=== PATIENT | male | born 1990 | race Two or more races ===

== ENCOUNTER 2025-01-07 09:34 | Emergency (ER) | payer MEDICAID, SELFPAY ==
[2025-01-07 09:37] VITALS: BMI 22.8
[2025-01-07 09:50] VITALS: BP 147/103; PULSE 110; RESP 19; TEMP 36.6; O2SAT 96
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
--- NOTE | 2025-01-07 10:01 | XR_ITS ---
Examination: PA lateral chest 2 views Technique: Upright PA lateral chest 2 views Date and time: January 07, 2025, 1007 hrs., Comparison December 09, 2015 Indications: Shortness of breath chest pain dizziness beginning 2 days ago. Findings: Mild hyperexpansion. Normal heart size. No pneumonia or pulmonary edema. Impression: Mild hyperexpansion. No pneumonia or pulmonary edema.
[2025-01-07 10:19] LABS: Basophils # (Auto) 0.1 Thou/mm3 (0.0-0.2); Basophils % (Auto) 2 % (0-2.5); Eosinophils # (Auto) 0.2 Thou/mm3 (0.0-0.5); Eosinophils % (Auto) 3 % (0-10); Hematocrit 40.5 % (41.0-53.0); Hemoglobin 14.4 g/dL (13.5-16.0); Immature Granulocytes Auto 0.01 Thou/mm3 (0.00-0.00); Lymphocytes # (Auto) 1.1 Thou/mm3 (1.0-4.8); Lymphocytes % (Auto) 24 % (10-50); Mean Corpuscular HGB Conc 35.6 g/dl (31.0-37.0); Mean Corpuscular Hemoglobin 33.7 pg (25.0-35.0); Mean Corpuscular Volume 95 fL (80-100); Monocytes # (Auto) 0.5 Thou/mm3 (0.0-0.8); Monocytes % (Auto) 10 % (0-12); Neutrophils # (Auto) 2.8 Thou/mm3 (1.8-7.7); Neutrophils % (Auto) 60 % (37-80); Nucleated Red Blood Cell # 0.00 Thou/mm3 (0.00-0.00); Nucleated Red Blood Cell % 0 /100 WBC (0); Platelet Count 270 Thou/mm3 (140-440); RDW Standard Deviation 42.3 fL (35.1-43.9); Red Blood Count 4.27 Miln/mm3 (4.50-5.90); White Blood Count 4.7 Thou/mm3 (3.8-10.6)
[2025-01-07 10:37] LABS: Alanine Aminotransferase 79 U/L (10-49); Albumin, Serum 5.1 gm/dL (3.5-5.0); Albumin/Globulin Ratio 1.8 (1.2-2.2); Alkaline Phosphatase 94 U/L (46-116); Anion Gap 16 (7-16); Aspartate Amino Transferase 205 U/L (0-34); BUN/Creatinine Ratio 8 Ratio (12-20); Bilirubin,Total 0.7 mg/dL (0.3-1.2); Blood Urea Nitrogen < 5 mg/dL (9-23); Calcium 10.6 mg/dL (8.3-10.6); Calcium (Corrected) 10.6 mg/dL (8.5-10.1); Carbon Dioxide 21.2 mMol/L (20.0-31.0); Chloride 99 mMol/L (98-107); Creatinine (Component) 0.6 mg/dL (0.6-1.3); Estimated Creatinine Clearance 165.4 mL/min (>60); Globulin 2.9 gm/dL (2.3-3.5); Glucose 86 mg/dL (74-106); Lipase 45 U/L (12-53); Osmolality,Calculated 268 (275-295); Potassium 4.1 mMol/L (3.4-5.1); Sodium 136 mMol/L (136-145); Thyroid Stimulating Hormone 0.80 uIU/mL (0.55-4.78); Total Protein 8.0 gm/dL (5.7-8.2); eGFR > 60 See Note
[2025-01-07] MEDS: ONDANSETRON INJ 2 MG/ML INJ 2 ML 4 MG IVP (10:45)
[2025-01-07 11:02] LABS: Troponin I < 0.002 ng/mL (0.0-0.045)
[2025-01-07 11:05] LABS: T4 (Thyroxine) 6.0 mcg/dL (4.5-10.9)
[2025-01-07 11:31] LABS: Collection Type, Urine Clean Catch
[2025-01-07 11:41] LABS: Bilirubin,Urine Negative (Negative); Blood,Urine Negative (Negative); Clarity,Urine Clear (Clear/Hazy); Color,Urine Yellow (Lt Yel-Yel); Culture Indicated,Urine Not Indicated; Glucose, Urine Negative (Negative); Ketones,Urine 1+ (Negative); Leukocyte Esterase,Urine Negative (Negative); Nitrite,Urine Negative (Negative); PH,Urine 6.5 (5.0-7.0); Protein,Urine Trace (Neg - Trace); RBC,Urine 2 /hpf (0-3); Specific Gravity,Urine 1.012 (1.001-1.035); Squamous Epithelial Cell,Urine < 1 /hpf (0-5); Urobilinogen,Urine 3.0 mg/dL (0.0-1.0); WBC,Urine 1 /hpf (0-5)
[2025-01-07 11:55] LABS: Amphetamine/Methamp Scrn,U Negative (Negative); Barbiturate Screen,Urine Negative (Negative); Benzodiazepines Screen,Urine Negative (Negative); Benzoylecgonine Screen, Ur Positive (Negative); Fentanyl Screen,Urine Negative (Negative); Opiate Screen,Urine Negative (Negative); THC Screen,Urine Negative (Negative)
[2025-01-07 12:12] VITALS: BP 134/76; PULSE 75; RESP 17; TEMP 36.9; O2SAT 98
== END 2025-01-07 12:28 | disposition home or self-care (01) ==
PROVIDERS: Emergency Provider Emergency Medicine
DX: R07.9 Chest pain, unspecified (principal)
CPT/HCPCS: 36415; 71046; 80053; 80307; 81001; 83690; 84436; 84443; 84484; 85025; 87400; 87811; 93005; 96374; 99283; J2405; A9270

== ENCOUNTER 2025-04-04 21:17 | Emergency (ER) | payer MEDICAID, SELFPAY ==
[2025-04-04 21:18] VITALS: BMI 22.1
[2025-04-04 21:34] VITALS: BP 162/100; PULSE 93; RESP 18; TEMP 36.6; O2SAT 100
--- NOTE | 2025-04-04 21:49 | EDNOTE_ITS ---
ED Wound/Laceration-RME/HPI General Chief Complaint: Wound/Laceration Stated Complaint: FALL LEFT SIDED FACE ABRASION/LACERATIONS Time Seen by Provider: 04/04/25 21:23 Arrival date/time: 04/04/25 21:17 34-year-old male patient was brought in by family for evaluation regarding superficial nongaping laceration to the left side of the face. According to him incident happened few minutes prior to ER visit patient fell. He denies any other injury no medication was taken prior to ER visit. Patient notes he is up-to-date with vaccination he got it less than a year ago. Related Data Previous Rx's ?Medication ?Instructions ?Recorded ibuprofen 600 mg tablet 600 mg PO Q8HR PRN PAIN #25 tabs 12/09/15 cephalexin 500 mg capsule 500 mg PO TID 7 days #21 cap s 04/04/25 Allergies Allergy/AdvReac Type Severity Reaction Status Date / Time No Known Allergies Allergy Verified 01/07/25 09:39 Review of Systems Review of Systems Narrative Review of Systems: Review of system reviewed and within normal limits except mentioned in HPI ED Exam Narrative Physical exam: VITAL SIGNS: Reviewed. GENERAL APPEARANCE: Alert and interactive, follows commands, no acute distress, HEAD AND FACE: +6 cm nongaping laceration, left side of face, no bleeding noted ENT: PERRL, pink conjunctivitis, eyelid no trauma, Mucous membrane moist. NECK: Supple, nontender, no nuchal rigidity. CHEST: No tenderness, no crepitus, no paradoxical movement, no retractions. LUNGS: Clear, well ventilated, symmetric, no rales, no wheezing, no ronchi, no stridor, good breath sounds bilaterally. HEART: Regular rate, regular rhythm, no murmur, no gallops. ABDOMEN: Soft, positive bowel sounds, nondistended, no guarding, nontender, no rebound, no masses, RECTAL: Deferred. GENITAL: Deferred. NEUROLOGICAL: Gross motor function intact sensory function intact, Appropriate for age. MUSCULOSKELETAL: low back nontender, full range of motion. EXTREMITIES: Nontender, full range of motion. SKIN: Color pink, dry, no rash, no lacerations, no abrasions, no contusions. LYMPHATICS: Deferred. Course Quality Measures none Orders Category Date Time Status Ibuprofen Tab [Motrin Tab] Med 04/04/25 21:48 Once 800 mg PO X1 ONE Vital Signs Vital signs: Vital Signs Temperature 97.9 F 04/04/25 21:34 Pulse Rate 93 04/04/25 21:34 Respiratory Rate 18 04/04/25 21:34 Blood Pressure 162/100 H 04/04/25 21:34 Pulse Oximetry (%) 100 04/04/25 21:34 Oxygen Delivery Method Room Air 04/04/25 21:34 Wound / Laceration MDM Narrative MDM Narrative:: 34-year-old male patient was brought in by family for evaluation regarding superficial nongaping laceration to the left side of the face. According to him incident happened few minutes prior to ER visit patient fell. He denies any other injury no medication was taken prior to ER visit. Patient notes he is up-to-date with vaccination he got it less than a year ago. Wound cleansed with NS, and Neosporin dressing applied Stable for discharged home Patient data External records reviewed:: None Clinical information provided by:: patient Social determinants that could affect healthcare access:: none Patient has the following chronic illnesses:: none How is presenting disease/condition affected by chronic disease/condition?: no chronic disease Evaluation data The following diagnostics were reviewed and interpreted by me:: other (specify) (None) Lab and/or radiology exams considered but not ordered:: None Interpretation Summary: None Medications / Prescriptions Medications or Prescriptions considered but not ordered:: None Medication administrations:: Medication Administration History Ibuprofen (Ibuprofen Tab 400 Mg Tablet) 800 mg PO X1 ONE Stop: 04/04/25 21:49 Motrin Consultations Consultation(s) initiated? (list below): No Diagnosis Wound Differential Diagnosis: laceration, abrasion and avulsion of skin Most likely diagnosis given after review of the tests above:: Nongaping laceration face Admission Indicated Admission indicated?: not indicated Admission Request Was there a request for admission?: No Disposition Plan Disposition Plan: Discharge Discharge Attestation Discharge Attestation: The patient was given an opportunity to ask questions and understood the discharge instructions. Discharge instructions specifically effects, indications for sooner follow up or return to the emergency department, and the expected course of current diagnosis. Patient condition: Stable Discharge Plan Plan Patient Disposition: HOME (Self Care) Discharge Disposition comment: stable Prescriptions/Referrals Prescriptions/Med Rec: New cephalexin 500 mg capsule 500 mg PO TID 7 Days Qty: 21 0RF No Action ibuprofen 600 MG tablet 600 mg PO Q8HR PRN (Reason: PAIN) Qty: 25 0RF Problem List Clinical Impression: Laceration of face Patient/Caregiver Discharge Instructions Discharge Activity: activity as tolerated Education Materials: ED Scar Tips to Minimize Additional Instructions: Thank you for the opportunity for serving you today. You are stable for discharged . You are advised to: Follow-up with your PCP in 1 to 2 days Return to ED for worsening of symptoms Increase oral fluids Take medication as prescribed Daily dressing with triple antibiotic as needed Print Language: Peruvian Stand Alone Forms: [employer] Award Info., Patient Portal Info Letter PA/COMMERCIAL PEST CONTROL REPRESENTATIVE Supervising Physician PA/COMMERCIAL PEST CONTROL REPRESENTATIVE Supervising Physician: MD Sameer
--- NOTE | 2025-04-04 22:23 | PC.NURSE ---
wound cleaned. triple antibiotic oint applied. dressing applied. verbal instructions on care of wound given. pt verbalized understanding.
== END 2025-04-04 22:26 | disposition home or self-care (01) ==
LOC: SERX 22:17
PROVIDERS: Emergency Provider Emergency Medicine
DX: S01.81XA Laceration without foreign body of other part of head, initial encounter (principal); W19.XXXA Unspecified fall, initial encounter
CPT/HCPCS: 99281